=== PATIENT | female | born 1950 | race Caucasian/White ===

== ENCOUNTER 2020-10-26 00:38 | Inpatient (IN) | payer MEDICARE, OTHER ==
[~2020-10-26] VITALS: Ht 154.9 cm; Wt 35.9 kg
[2020-10-26 02:33] LABS: HEMOGLOBIN 10.8 gm/dl (12.3-15.3); RED BLOOD COUNT 3.51 M/UL (4.00-5.10); WHITE BLOOD COUNT 13.4 K/UL (4.5-11.0)
[2020-10-26 02:53] LABS: BUN/CREATININE RATIO 52 (0-10)
[2020-10-26] MEDS ORDERED: ATORVASTATIN CA80 MG PO (04:52)
[2020-10-26] MEDS ORDERED: FOSAMAX70 MG PO (04:52)
[2020-10-26] MEDS ORDERED: CHLORPROMAZINE10 MG PO (04:53)
[2020-10-26] MEDS ORDERED: COZAAR25 MG PO (04:54)
[2020-10-26] MEDS ORDERED: ANTIVERT 12.512.5 MG PO (04:55)
[2020-10-26] MEDS ORDERED: ZOFRAN 4 MG TAB4 MG PO (04:56)
[2020-10-26] MEDS ORDERED: K-DUR TAB 10 M10 MEQ PO (04:57)
[2020-10-26] MEDS ORDERED: ASPIRIN81 MG PO (05:00)
[2020-10-26] MEDS ORDERED: PROVENTIL HFA6.7 GM INH (05:03)
[2020-10-26] MEDS ORDERED: ZYRTEC10 M3 PO (05:08)
[2020-10-26] MEDS ORDERED: OMEPRAZOLE20 MG PO (05:09)
[2020-10-27 04:15] LABS: HEMOGLOBIN 7.5 gm/dl (12.3-15.3); RED BLOOD COUNT 2.46 M/UL (4.00-5.10); WHITE BLOOD COUNT 7.4 K/UL (4.5-11.0)
[2020-10-27 05:03] LABS: BUN/CREATININE RATIO 29 (0-10)
[2020-10-28 05:00] LABS: WHITE BLOOD COUNT 9.2 K/UL (4.5-11.0)
[2020-10-28 05:02] LABS: RED BLOOD COUNT 2.13 M/UL (4.00-5.10)
[2020-10-28 05:05] LABS: HEMOGLOBIN 6.6 gm/dl (12.3-15.3)
[2020-10-28 05:40] LABS: BUN/CREATININE RATIO 35 (0-10)
--- NOTE | 2020-10-28 19:05 | NUR ---
showed to dr. mcconnell patient's bilateral lower extrimities and offensive odor with his morning visit with the patient today
[2020-10-29 03:53] LABS: HEMOGLOBIN 10.6 gm/dl (12.3-15.3); WHITE BLOOD COUNT 9.2 K/UL (4.5-11.0)
[2020-10-29 03:57] LABS: RED BLOOD COUNT 3.54 M/UL (4.00-5.10)
[2020-10-29 04:30] LABS: BUN/CREATININE RATIO 25 (0-10)
[2020-10-30 04:33] LABS: HEMOGLOBIN 8.7 gm/dl (12.3-15.3); WHITE BLOOD COUNT 9.2 K/UL (4.5-11.0)
[2020-10-30 04:43] LABS: RED BLOOD COUNT 2.92 M/UL (4.00-5.10)
[2020-10-30 04:56] LABS: BUN/CREATININE RATIO 30 (0-10)
--- NOTE | 2020-10-30 09:35 | NUR ---
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
[2020-11-01 02:50] LABS: HEMOGLOBIN 8.4 gm/dl (12.3-15.3); RED BLOOD COUNT 2.87 M/UL (4.00-5.10); WHITE BLOOD COUNT 10.4 K/UL (4.5-11.0)
[2020-11-01 03:18] LABS: BUN/CREATININE RATIO 26 (0-10)
[2020-11-01] MEDS ORDERED: BAZA ANTIFUNGAL57 GM TP (15:31)
[2020-11-01] MEDS ORDERED: VITAMIN B-1100 M1 PO (15:31)
[2020-11-01] MEDS ORDERED: DOCUSATE SODIU100 MG PO (15:31)
[2020-11-01] MEDS ORDERED: FERROUS FUMARA324 MG PO (15:31)
[2020-11-01] MEDS ORDERED: DRONABINOL2.5 MG PO (15:31)
[2020-11-01] MEDS ORDERED: FOLIC ACID 1 MG1 MG PO (15:31)
[2020-11-01] MEDS ORDERED: POLYETHYLENE GL17 GM PO (15:31)
[2020-11-01] MEDS ORDERED: PROTONIX 40 MG40 M1 PO (15:31)
[2020-11-01] MEDS ORDERED: BISACODYL10 MG PR (15:31)
[2020-11-01 19:12] LABS: 25-HYDROXY, VITAMIN D 30 ng/mL (.); 25-HYDROXY, VITAMIN D-2 <1.0 ng/mL (.); 25-HYDROXY, VITAMIN D-3 30 ng/mL (.)
== END 2020-11-01 18:30 | DRG 480 ==
LOC: ER1 00:38 → M/S 02:05 → CDU 02:05 → M/S 04:46
PROVIDERS: Emergency Medicine; Internal Medicine; Physician Assistant; ADMIT Internal Medicine
PROC: 0QS604Z Reposition Right Upper Femur with Internal Fixation Device, Open Approach (ICD-10-PCS; 2020-10-26)
PROC: 30233N1 Transfusion of Nonautologous Red Blood Cells into Peripheral Vein, Percutaneous Approach (ICD-10-PCS; principal; 2020-10-28)
DX: S72.144A Nondisplaced intertrochanteric fracture of right femur, initial encounter for closed fracture (principal); E43 Unspecified severe protein-calorie malnutrition; D62 Acute posthemorrhagic anemia; R64 Cachexia; Z68.1 Body mass index [BMI] 19.9 or less, adult; Z20.822 Contact with and (suspected) exposure to COVID-19; I25.10 Atherosclerotic heart disease of native coronary artery without angina pectoris; M19.90 Unspecified osteoarthritis, unspecified site; M81.0 Age-related osteoporosis without current pathological fracture; F41.9 Anxiety disorder, unspecified; W18.39XA Other fall on same level, initial encounter; D63.8 Anemia in other chronic diseases classified elsewhere; F32.9 Major depressive disorder, single episode, unspecified; K21.9 Gastro-esophageal reflux disease without esophagitis; E78.5 Hyperlipidemia, unspecified; B36.9 Superficial mycosis, unspecified; E87.6 Hypokalemia; R13.10 Dysphagia, unspecified; I10 Essential (primary) hypertension; K59.00 Constipation, unspecified; R53.81 Other malaise; J44.9 Chronic obstructive pulmonary disease, unspecified; Z98.42 Cataract extraction status, left eye; Z98.41 Cataract extraction status, right eye; Z90.710 Acquired absence of both cervix and uterus; Z82.49 Family history of ischemic heart disease and other diseases of the circulatory system; Z88.6 Allergy status to analgesic agent; Z88.1 Allergy status to other antibiotic agents; Z88.2 Allergy status to sulfonamides; Z79.82 Long term (current) use of aspirin; Z79.899 Other long term (current) drug therapy; Z87.891 Personal history of nicotine dependence
CPT/HCPCS: 36415; 36430; 51702; 71045; 73030; 73502; 73552; 76000; 80048; 80053; 81001; 82306; 82550; 82553; 82607; 82746; 83540; 83550; 83735; 84439; 84443; 84484; 85018; 85025; 85045; 85610; 85730; 86850; 86900; 86901; 86920; 92610; 93005; 94003; 94640; 94760; 97110-GP-CQ; 97161; 97166; 97530; 97530-GP-CQ; 97535; 99285; C1713; C9113; J0171; J0690; J1100; J1170; J1650; J1756; J2001; J2270; J2405; J2704; J2795; J3010; J3480; J7050; J7120; P9016; U0002